=== PATIENT | male | born 1955 | race Caucasian/White ===

== ENCOUNTER 2020-04-26 12:01 | Emergency (ER) | payer OTHER, MEDICARE ==
--- NOTE | 2020-04-26 12:19 | ED Physician Documentation ---
PD HPI LOWER EXT INJURY - Stated complaint Stated Complaint: R FOOT INJ - History obtained from History obtained from: Patient - History of Present Illness PD HPI LOW EXT INJURY LOCATION: Right, Foot Type of injury: Fall, Twist (stepped off stairs and foot rolled inward, with pain lateral foot. Working with [employer].) Where injury occurred: Work Timing - onset: Today Timing - details: Abrupt onset, Still present Worsened by: Moving, Palpating, Other (weight bearing) Associated symptoms: Swelling (mid lateral foot.). No: Weakness, Numbness Similar symptoms before: Has not had sx before Review of Systems Skin: denies: Abrasion (s), Laceration (s) Neurologic: denies: Focal weakness, Numbness PD PAST MEDICAL HISTORY - Past Medical History Cardiovascular: Hypertension, Other Respiratory: None Endocrine/Autoimmune: None GI: GERD, Ulcers, Other : None HEENT: None Psych: None Musculoskeletal: Other Derm: None - Past Surgical History General: Colonoscopy, EGD Ortho: Spine surgery - Present Medications Home Medications: Ambulatory Orders Medication Instructions Recorded Confirmed Metoprolol Tartrate 0.5 tab PO DAILY 01/15/15 01/15/15 Omeprazole [PriLOSEC] 1 tab PO DAILY 01/15/15 01/15/15 Hydrocodone/Acetaminophen [Verden 1 each PO Q6H PRN #15 tablet 04/26/20 5-325 Tablet] - Allergies Allergies/Adverse Reactions: Allergies Allergy/AdvReac Type Severity Reaction Status Date / Time morphine AdvReac Emesis Verified 01/15/15 07:36 PD ED PE NORMAL - Vitals Vital signs reviewed: Yes - General General: Alert and oriented X 3, No acute distress, Well developed/nourished - Derm Derm: Normal color, Warm and dry - Extremities Extremities: Other (right foot with tenderness and swelling at proximal 5th MT area. ) - Neuro Neuro: No motor deficit, No sensory deficit Results - Vitals Vitals: Vital Signs - 24 hr 04/26/20 04/26/20 12:23 13:57 Temperature 36.5 C 37.1 C Heart Rate 88 86 Respiratory 18 20 Rate Blood Pressure 138/79 H 138/76 H O2 Saturation 99 99 Oxygen O2 Source Room air - Rads (name of study) foot right Radiology: Prelim report reviewed (nondisplaced proximal 5th MT fracture. ), See rad report PD MEDICAL DECISION MAKING - ED course Complexity details: reviewed results, considered differential, d/w patient Departure - Departure Disposition: 01 Home, Self Care Clinical Impression: Fracture of base of fifth metatarsal bone Qualifiers: Encounter type: initial encounter Fracture type: closed Laterality: right Qualified Code(s): S92.351A - Displaced fracture of fifth metatarsal bone, right foot, initial encounter for closed fracture Condition: Stable Record reviewed to determine appropriate education?: Yes Instructions: ED Fx Foot Follow-Up: JESSICA SNIDER [Primary Care Provider] - Jose C Lanza MD [Provider Admit Priv/Credential] - Prescriptions: Hydrocodone/Acetaminophen [Verden 5-325 Tablet] 1 each PO Q6H PRN #15 tablet PRN Reason: Pain Comments: Use the cast boot when up and around for the next 4 weeks. You likely will want to have it on even when rested and sleeping for the next 7 to 10 days for the initial healing of the fracture. Crutches for nonweightbearing initially and progress weightbearing as tolerated after about 10 days. It would be good to follow-up with your primary care or orthopedics in the next 7 to 10 days for reevaluation and likely re-x-ray to make sure its maintaining position. Tylenol ibuprofen as needed for pains. Add hydrocodone if needed for worse pain in the short-term. If should feel a lot better after the first several days. Discharge Date/Time: 04/26/20 13:58
--- NOTE | 2020-04-26 13:15 | XRAY Report ---
PROCEDURE: Foot 3 View RT INDICATIONS: foot injury TECHNIQUE: 3 views of the foot were acquired. COMPARISON: 03/04/2014 FINDINGS: Bones: There is a mildly displaced transverse fracture seen involving the proximal fifth metatarsal, with mild comminution. No definite intra-articular involvement is seen. No additional fractures can be seen. No suspicious bony lesions. A mild hallux valgus deformity i s seen, with associated degenerative change of the first metatarsophalangeal joint. Milder degenerati ve changes are seen elsewhere. A plantar calcaneal spur is incidentally noted. Soft tissues: No tibiotalar joint effusion. Achilles tendon appears normal. IMPRESSION: Mildly displaced, mildly comminuted fracture of the proximal fifth metatarsal. Mild hallux valgus deformity, with associated degenerative changes. Reviewed by: Jude Kwon MD on 04/26/2020 12:14 PM JAMES Approved by: Jude Kwon MD on 04/26/2020 12:14 PM JAMES Station ID: [id number]
[2020-04-26] MEDS ORDERED: IBUPROFEN 600 MG TABLET PO STA (13:38)
[2020-04-26] MEDS ORDERED: HYDROcod/ACETAM 5/325 MG TABLET PO STA (13:38)
[2020-04-26 13:58] VITALS: BP 138/76
== END 2020-04-26 13:58 | disposition home or self-care (01) ==
LOC: ED 12:01
DX: S92.351A Displaced fracture of fifth metatarsal bone, right foot, initial encounter for closed fracture (principal); W10.9XXA Fall (on) (from) unspecified stairs and steps, initial encounter; X50.1XXA Overexertion from prolonged static or awkward postures, initial encounter; Y99.0 Civilian activity done for income or pay; I10 Essential (primary) hypertension
CPT/HCPCS: 73630; 99283; A9270

== ENCOUNTER 2020-06-16 08:00 | Outpatient (CLI) | payer OTHER, MEDICARE ==
--- NOTE | 2020-06-16 14:14 | XRAY Report ---
PROCEDURE: Foot 3 View RT INDICATIONS: R 5TH METATARSAL FX TECHNIQUE: 3 views of the foot were acquired. COMPARISON: X-ray right foot, 3 views, 04/26/2020 and 02/02/2014. FINDINGS: Bones: There is a comminuted fracture at the base of the fifth metatarsal. Fracture lucency is more prominent. There is increased diastases between the fracture fragments. No suspicious bony lesions. There is mild to moderate hallux valgus and metatarsus adductus. Mild first metatarsophalangeal joint degeneration. There is calcaneal spurring. Soft tissues: No tibiotalar joint effusion. Achilles tendon appears normal. Bunion. IMPRESSION: 1. Comminuted fifth metatarsal base fracture. Fracture lucency is more prominent with increased diast ases between the fracture fragments. Reviewed by: Maycol Hurd MD on 06/16/2020 2:12 PM PDT Approved by: Maycol Hurd MD on 06/16/2020 2:12 PM PDT Station ID: [id number]
== END 2020-06-16 23:59 | disposition home or self-care (01) ==
LOC: DI.WCP 08:00
PROVIDERS: ATTEND Orthopaedic Surgery
DX: S92.354A Nondisplaced fracture of fifth metatarsal bone, right foot, initial encounter for closed fracture (principal)

== ENCOUNTER 2020-06-20 07:07 | Outpatient (CLI) | payer MEDICARE, OTHER ==
--- NOTE | 2020-06-20 09:50 | MRI Report ---
PROCEDURE: Foot RT W/O INDICATIONS: CHRONIC PAIN I RT 1ST MTPJ TECHNIQUE: Noncontrast sagittal T1 spin echo and T2 fast spin echo with fat saturation, long-axis T1 spin echo a nd T2 fast spin echo with fat saturation, short-axis proton density fast spin echo and T2 fast spin e cho with fat saturation through the forefoot. COMPARISON: Right foot radiographs dated 06/16/2020 FINDINGS: Image quality: Excellent. Bones and joints: There is moderate hallux valgus. Moderate degenerative changes are seen at the fir st metatarsophalangeal joint and the metatarsal sesamoid articulations with marginal osteophyte forma tion and subchondral cystic changes. A nonspecific T2 hyperintense lesion in the metaphysis of the fi rst metatarsal may represent proximal extension of a subchondral cyst versus a nonaggressive lesion s uch as an enchondroma. There is a moderate first metatarsophalangeal joint effusion. An additional ad ventitial bursal fluid collection is seen in the subcutaneous tissues inferomedial to the first metat arsal head. Mild degenerative changes are also seen at the first interphalangeal joint. A known comminuted fracture of the fifth metatarsal base is included at the margins of the field-of-v iew of this exam with associated osseous edema. Osseous bridging across the fracture line is not defi nitely visualized. Surrounding soft tissue edema is noted. The second through fifth toes are held in extension with flexion at the proximal interphalangeal join ts, which may be related to positioning or hammertoe deformities. Soft tissues: The visualized plantar foot muscles demonstrate normal signal and bulk. Visualized fl exor and extensor tendons appear intact, without tenosynovitis. Small intermetatarsal bursal effusion s are seen in the first through third interspaces.. Sagittal images demonstrate no evidence for plan tar plate tears. IMPRESSION: 1. Moderate hallux valgus with moderate degenerative changes of the first metatarsophalangeal joint and the metatarsal sesamoid articulations. There is a medium-sized joint effusion. An adventitial bur kriss effusion is seen in the subcutaneous tissues inferomedial to the first metatarsal head. 2. Comminuted fracture at the base of the fifth metatarsal is only partially imaged at the margins o f the [id number] of this exam. There is associated osseous edema without definite osseous bridging across the fracture line. Reviewed by: Carrillo Manrique MD on 06/20/2020 9:49 AM PDT Approved by: Carrillo Manrique MD on 06/20/2020 9:49 AM PDT Station ID: [id number]
== END 2020-06-20 07:08 | disposition home or self-care (01) ==
LOC: DI 07:07
PROVIDERS: ATTEND Podiatrist
DX: S92.351A Displaced fracture of fifth metatarsal bone, right foot, initial encounter for closed fracture (principal); M19.071 Primary osteoarthritis, right ankle and foot; M20.11 Hallux valgus (acquired), right foot; M77.8 Other enthesopathies, not elsewhere classified

== ENCOUNTER 2020-07-28 13:18 | Outpatient (CLI) | payer OTHER, MEDICARE ==
--- NOTE | 2020-07-28 13:20 | XRAY Report ---
PROCEDURE: Foot 3 View RT INDICATIONS: NONDISPLACED FX OF FIFTH METATARSAL, R FOOT TECHNIQUE: 3 views of the foot were acquired. COMPARISON: 04.26.20 FINDINGS: Bones: There is increased, mild displacement of the proximal fifth metatarsal fracture. No suspicious bony lesions. Metatarsus primus varus. Mild periarticular osteophyte formation at the first metatar sophalangeal joint. Soft tissues: No tibiotalar joint effusion. Achilles tendon appears normal. IMPRESSION: Increased displacement of fifth metatarsal fracture. Reviewed by: Ruperto Dupree MD on 07/28/2020 1:19 PM PST Approved by: Ruperto Dupree MD on 07/28/2020 1:19 PM [facility] Station ID: [id number]
== END 2020-07-28 23:59 | disposition home or self-care (01) ==
LOC: DI.N 13:18
PROVIDERS: ATTEND Orthopaedic Surgery
DX: S92.354A Nondisplaced fracture of fifth metatarsal bone, right foot, initial encounter for closed fracture (principal)

== ENCOUNTER 2020-09-08 13:35 | Outpatient (CLI) | payer OTHER, MEDICARE ==
--- NOTE | 2020-09-08 10:18 | XRAY Report ---
PROCEDURE: Foot 3 View RT INDICATIONS: NONDISPLACED FX OF 5TH METATARSAL ON R FOOT TECHNIQUE: 3 views of the foot were acquired. COMPARISON: 07/28/2020 FINDINGS: Bones: Again noted is nondisplaced and comminuted fracture through base of fifth metatarsal bone with partial bony union at fracture site. No new fracture or dislocation is seen. Alignment of right foot is anatomic. Osteoarthritic changes throughout midfoot and forefoot joints are noted. No suspicious bony lesions. Soft tissues: No tibiotalar joint effusion. Achilles tendon appears normal. IMPRESSION: Healing comminuted and nondisplaced fifth metatarsal base fracture site with stable right foot alignm ent. No new fracture or dislocation. Midfoot and forefoot joint osteoarthritis. Reviewed by: Kenneth Wilde MD on 09/08/2020 10:17 AM PST Approved by: Kenneth Wilde MD on 09/08/2020 10:17 AM PST Station ID: [id number]
== END 2020-09-08 23:59 | disposition home or self-care (01) ==
LOC: DI.N 13:35
PROVIDERS: ATTEND Orthopaedic Surgery
DX: S92.354A Nondisplaced fracture of fifth metatarsal bone, right foot, initial encounter for closed fracture (principal)

== ENCOUNTER 2020-11-10 07:00 | Outpatient (CLI) | payer OTHER, MEDICARE ==
--- NOTE | 2020-11-10 10:03 | XRAY Report ---
PROCEDURE: Foot 3 View RT INDICATIONS: NONDISPLACED FX OF 5TH METATARSAL, R FOOT TECHNIQUE: 3 views of the foot were acquired. COMPARISON: 09/08/2020 x-ray foot FINDINGS: Bones: There is a mildly displaced fifth metatarsal fracture demonstrating mild interval healing. No change in alignment. Degenerative changes are noted at the IP joints. No suspicious bony lesions. Soft tissues: No tibiotalar joint effusion. Achilles tendon appears normal. IMPRESSION: Continued interval healing with stable alignment of fifth metatarsal base fracture. Reviewed by: Melissa Suarez MD on 11/10/2020 10:02 AM PDT Approved by: Melissa Suarez MD on 11/10/2020 10:02 AM PDT Station ID: [id number]
== END 2020-11-10 23:59 | disposition home or self-care (01) ==
LOC: DI.N 07:00
PROVIDERS: ATTEND Orthopaedic Surgery
DX: S92.351D Displaced fracture of fifth metatarsal bone, right foot, subsequent encounter for fracture with routine healing (principal)

== ENCOUNTER 2021-06-21 19:10 | Emergency (ER) | payer MEDICARE, OTHER ==
[2021-06-21 19:30] LABS: BASOPHILS % (AUTO) 0.6 %; EOSINOPHILS # (AUTO) 0.2 10^3/uL (0.0-0.7); EOSINOPHILS % (AUTO) 3.2 %; HCT - HEMATOCRIT 41.6 % (42.0-52.0); HGB - HEMOGLOBIN 14.1 g/dL (14.0-18.0); LYMPHOCYTES # (AUTO) 2.1 10^3/uL (1.5-3.5); LYMPHOCYTES % (AUTO) 30.9 %; MEAN CORPUSCULAR HEMOGLOBIN 33.1 pg (27.0-31.0); MEAN CORPUSCULAR HGB CONC 33.9 g/dL (32.0-36.0); MEAN CORPUSCULAR VOLUME 97.7 fL (80.0-94.0); MEAN PLATELET VOLUME 10.1 fL (7.4-11.4); MONOCYTES # (AUTO) 0.7 10^3/uL (0.0-1.0); NEUTROPHILS # (AUTO) 3.8 10^3/uL (1.5-6.6); PLT - PLATELET COUNT 189 10^3/uL (130-450); RED BLOOD COUNT 4.26 10^6/uL (4.70-6.10); RED CELL DISTRIBUTION WIDTH 12.3 % (12.0-15.0); WHITE BLOOD COUNT 6.8 x10^3/uL (4.8-10.8)
[2021-06-21 19:47] LABS: ALBUMIN/GLOBULIN RATIO 1.1 (1.0-2.2); BILIRUBIN,TOTAL 0.5 mg/dL (0.2-1.0); CALCIUM 10.1 mg/dL (8.5-10.3); CREATININE 0.8 mg/dL (0.6-1.2); POTASSIUM 3.8 mmol/L (3.5-5.0); TOTAL PROTEIN 7.7 g/dL (6.7-8.2)
[2021-06-21] MEDS ORDERED: MAG HYDROX/AL HYDROX/SIMETH 30 ML UDC PO STA (19:50)
--- NOTE | 2021-06-21 20:15 | ED Physician Documentation ---
History of Present Illness - Stated complaint Stated Complaint: CHEST DISCOMFORT, DIZZY, FATIGUE - Chief complaint Chief Complaint: Cardiac - Additonal information Additional information: 65-year-old female presents the emergency department for evaluation Of left- sided chest discomfort that began about 4:30 PM. While he was sitting. He describes it mostly as a dull ache nonradiating. No nausea or vomiting. He states that over the last few weeks he has had a lot of stomach upset and has had similar pain in the past when he had a bleeding ulcer. Over the last few weeks he has taken Protonix without relief of symptoms. He denies any radiation of this pain to the jaw or arm. Has no previous history of MT though he does have a history of hypertension which is well controlled with 12 and half milligrams metoprolol daily. He is a non-smoker. No alcohol. Review of Systems Constitutional: reports: Reviewed and negative Eyes: reports: Reviewed and negative Nose: reports: Reviewed and negative Throat: reports: Reviewed and negative Cardiac: reports: Chest pain / pressure Respiratory: reports: Reviewed and negative GI: reports: Reviewed and negative : reports: Reviewed and negative PD PAST MEDICAL HISTORY - Past Medical History Cardiovascular: Hypertension, Other Respiratory: None Neuro: None Endocrine/Autoimmune: None GI: GERD, Ulcers, Other : None HEENT: None Psych: None Musculoskeletal: Other Derm: None - Past Surgical History Past Surgical History: Yes General: Colonoscopy, EGD Ortho: Spine surgery - Present Medications Home Medications: Ambulatory Orders Medication Instructions Recorded Confirmed Metoprolol Tartrate 0.5 tab PO DAILY 01/15/15 06/21/21 Omeprazole [PriLOSEC] 1 tab PO DAILY 01/15/15 06/21/21 Atorvastatin Calcium 40 mg PO DAILY 06/21/21 06/21/21 Fluticasone [Flonase] 2 spray NS DAILY PRN 06/21/21 06/21/21 Sucralfate [Carafate] 1 gm PO ACHS #60 tablet 06/21/21 - Allergies Allergies/Adverse Reactions: Allergies Allergy/AdvReac Type Severity Reaction Status Date / Time morphine AdvReac Emesis Verified 06/21/21 19:22 - Social History Does the pt smoke?: No Smoking Status: Never smoker Does the pt drink ETOH?: No Does the pt have substance abuse?: No - Immunizations Immunizations are current?: Yes - POLST Patient has POLST: No PD ED PE NORMAL - General General: Alert and oriented X 3, No acute distress - HEENT HEENT: PERRL - Neck Neck: Supple, no meningeal sign - Cardiac Cardiac: RRR, No murmur - Respiratory Respiratory: Clear bilaterally - Abdomen Abdomen: Normal bowel sounds, Soft, Non distended. No: Non tender (Mild epigastric discomfort) - Back Back: No CVA TTP - Derm Derm: Normal color, Warm and dry, No rash - Extremities Extremities: No deformity - Neuro Neuro: Alert and oriented X 3 Results - Vitals Vitals: Vital Signs - 24 hr 06/21/21 19:17 Temperature 36.6 C Heart Rate 67 Respiratory 18 Rate Blood Pressure 150/88 H O2 Saturation 100 Oxygen O2 Source Room air - EKG (time done) 1914 Rate: Rate (enter#) (69) Rhythm: NSR [place]: Normal Intervals: Normal AL QRS: Normal Ischemia: Normal ST segments Compare to prior EKG: Old EKG unavailable Computer interpretation: Agree with computer - Labs Labs: Laboratory Tests 06/21/21 06/21/21 06/21/21 19:20 19:20 19:20 WBC 6.8 RBC 4.26 L Hgb 14.1 Hct 41.6 L MCV 97.7 H MCH 33.1 H MCHC 33.9 RDW 12.3 Plt Count 189 MPV 10.1 Neut # (Auto) 3.8 Lymph # (Auto) 2.1 [place] # (Auto) 0.7 Eos # (Auto) 0.2 Baso # (Auto) 0.0 Absolute Nucleated RBC 0.00 Nucleated RBC % 0.0 Sodium 137 Potassium 3.8 Chloride 103 Carbon Dioxide 25 Anion Gap 9.0 BUN 17 Creatinine 0.8 Estimated GFR (MDRD) 96 Glucose 109 H Calcium 10.1 Total Bilirubin 0.5 AST 25 ALT 34 Alkaline Phosphatase 54 Troponin I High Sens 5.7 Total Protein 7.7 Albumin 4.0 Globulin 3.7 Albumin/Globulin Ratio 1.1 Lipase 34 06/21/21 20:47 WBC RBC Hgb Hct MCV MCH MCHC RDW Plt Count MPV Neut # (Auto) Lymph # (Auto) [place] # (Auto) Eos # (Auto) Baso # (Auto) Absolute Nucleated RBC Nucleated RBC % Sodium Potassium Chloride Carbon Dioxide Anion Gap BUN Creatinine Estimated GFR (MDRD) Glucose Calcium Total Bilirubin AST ALT Alkaline Phosphatase Troponin I High Sens 5.7 Total Protein Albumin Globulin Albumin/Globulin Ratio Lipase - Rads (name of study) CXR Radiology: Final report received (No acute cardiopulmonary pathology) PD MEDICAL DECISION MAKING - ED course Complexity details: reviewed results, re-evaluated patient, d/w patient ED course: 65-year-old male presents the emergency department for evaluation of some chest discomfort that began approximately 4:30 PM. Nonradiating no nausea vomiting. Does have a history of hypertension that is well controlled with metoprolol. He is a non-smoker. No previous history of MT. By Wells criteria low risk for DVT. Screening EKG is nonischemic. 2 high-sensitivity troponins are also negative. We discussed that his heart score is 3 based on age and history. We discussed the possibility of an observation admission but he declined that at this time. He will follow up closely with his primary care provider and request outpatient echocardiogram and cardiac stress test. I did advise her to begin taking an 81 mg aspirin daily. He is also reporting epigastric pain for which she is previously been treated for H. pylori. I suspect he has a return of this patient will be started on Carafate daily. Patient was advised he likely needs follow-up for EGD. Patient will return to the ER if he develops chest pain, shortness of air or any dyspnea or return of symptoms. Departure - Departure Disposition: 01 Home, Self Care Clinical Impression: Epigastric pain Chest pain Qualifiers: Chest pain type: unspecified Qualified Code(s): R07.9 - Chest pain, unspecified Condition: Stable Record reviewed to determine appropriate education?: Yes Instructions: ED Chest Pain Atypical Unkn Cause Prescriptions: Sucralfate [Carafate] 1 gm PO ACHS #60 tablet Comments: Ilan You were seen today for chest pain. Your screening EKG and labs including 2 troponins are all essentially normal. However given your age and your history of hypertension it is important that you follow-up very closely with your primary care provider. I do recommend that you begin taking an 81 mg aspirin daily. You need to be referred for an urgent echocardiogram and cardiac stress test. I suspect that the cause of your abdominal pain is a return of gastritis or peptic ulcer disease. Please fill the prescription for the Carafate begin taking every night. Avoid spicy foods and caffeine. It if at any point you develop worsening chest pain have any shortness of air then please return immediately to the ER for a second evaluation. The prescription for your Carafate has been sent to the right aid in [place]
--- NOTE | 2021-06-21 20:40 | XRAY Report ---
PROCEDURE: Chest 1 View X-Ray INDICATIONS: chest pain TECHNIQUE: One view of the chest was acquired. COMPARISON: None. FINDINGS: Surgical changes and devices: None. Lungs and pleura: No pleural effusions or pneumothorax. Lungs are clear. Mediastinum: Mediastinal contours appear normal. Heart size is normal. Bones and chest wall: No suspicious bony lesions. Prior right-sided rib fractures. Prior clavicle fr actures. Overlying soft tissues appear unremarkable. IMPRESSION: No acute cardiopulmonary abnormality. Reviewed by: Loco Donovan MD on 06/21/2021 8:39 PM PDT Approved by: Loco Donovan MD on 06/21/2021 8:39 PM PDT Station ID: [id number]
[2021-06-21 21:40] VITALS: BP 120/74
== END 2021-06-21 21:38 | disposition home or self-care (01) ==
LOC: ED 19:10
DX: R07.9 Chest pain, unspecified (principal); R10.13 Epigastric pain; I10 Essential (primary) hypertension
CPT/HCPCS: 36415; 71045; 80053; 83690; 84484; 85025; 93005; 99284; A9270

== ENCOUNTER 2021-10-01 07:46 | Outpatient (CLI) | payer MEDICARE, OTHER ==
--- NOTE | 2021-10-01 08:39 | CARDIAC PROCEDURE NOTE ---
Stress Test Report Service Date: 10/01/21 Service Time: 08:00 Ordering Provider: Devang Paez MD Indication for Test: Assess for inducible cardiac ischemia. Significant Medical History: Ilan is referred for a treadmill stress echocardiogram today following an episode of illness that began in late May,. At that time he found himself feeling some generalized malaise and poor energy, with intermittent mid and upper abdominal pain, different in nature from his prior GERD. He was evaluated at the [facility] Emergency Department, at which time blood pressure was found to be elevated in the setting of his ongoing treatment with metoprolol 12.5 mg twice daily, though there were no other specific abnormal findings per his recollection. A follow up stress test was recommended. Although Covid was suspected, testing was negative, but the patient did have to refrain from work for a total of 4 weeks. Following return to work he has experienced return of his energy level and stamina to prior baseline levels. 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 He still has intermittent abdominal symptoms, for which he underwent an upper GI endoscopy that failed to show serious pathology (per his understanding). The GI discomfort may still occur randomly, though possibly more frequently when bending over; he denies associated diaphoresis, increased dyspnea or work of breathing, palpitations, chest discomfort or lightheadedness. He comments that when experiencing the abdominal discomfort he usually feels better with increasing his activity level. Cardiac Risk Factors: Positive for hypertension treated for about 8 years and hyperlipidemia; he smoked cigarettes for a few years but quit in 2004. He denies history of diabetes and known family history of heart attack or stroke. Type of Stress Test: ETT with Echocardiography Procedure: -Exercise Treadmill Test- After signing informed consent, the patient underwent resting echo imaging and then performed treadmill exercise using a Brijesh protocol. The patient exercised for 10 minutes 3 seconds and achieved a peak heart rate of 156 (101 percent predicted maximum heart rate for age), and an estimated workload of 12 METS. The test was terminated due to fatigue/shortness of breath. Resting heart rate: 65 Peak heart rate: 156 Normal response to exercise. Resting BP: 124/90 Peak BP: 167/83 Borderline elevated BP at rest with physiologic response to exercise. Rhythm during exercise: Normal sinus rhythm throughout, with intermittent isolated premature atrial complexes. Symptoms: The patient denied experiencing any chest or abdominal discomfort. EKG at rest showed normal sinus rhythm, normal in all aspects. EKG at peak stress showed J-point depression with upsloping ST segments, NOT meeting diagnostic criteria for ischemia. In Recovery heart rate and blood pressure rapidly and normally returned to near resting levels. Echo imaging performed at rest and with stress will be reported separately. IErasmo MD, was present throughout this treadmill stress study and supervised it in its entirety. Summary: 1) Exercise tolerance well above average for age as evidenced by ALVIN of -31%. 2) Normal resting EKG. 3) An adequate level of exercise was achieved on this treadmill stress test. 4) Normal BP response to exercise. 5) No ischemic changes by EKG criteria were seen at peak stress. 6) Echo image interpretation reveals normal left ventricular size and systolic function, with appropriate hyperdynamic augmentation of all segments with exercise, indicating no evidence of prior infarct or inducible ischemia. Note borderline elevation of estimated RV/PA systolic pressure (36 mmHg) on screening study. CONCLUSIONS: 1) Low risk exercise stress test results, without symptoms, EKG or echocardiographic evidence of inducible ischemia. 2) The patient was given a CD of containing his ultrasound images for review as appropriate by his provider team.
== END 2021-10-01 07:47 | disposition home or self-care (01) ==
LOC: DI 07:46
PROVIDERS: ATTEND Internal Medicine Cardiovascular Disease
DX: R07.9 Chest pain, unspecified (principal); I10 Essential (primary) hypertension; R07.89 Other chest pain; E78.5 Hyperlipidemia, unspecified; Z87.891 Personal history of nicotine dependence
CPT/HCPCS: 93016; 93017; 93018; 93350